=== PATIENT | female | born 1955 | race Caucasian/White ===

== ENCOUNTER 2020-07-01 09:08 | Observation (INO) ==
[2020-07-01] MEDS ORDERED: DilTIAZem 50 MG/50 ML IV.SOLN IVC SCH (09:30)
[2020-07-01 09:36] LABS: Basophils # 0.1 K/mcL (0.0-0.2); Basophils % 0.8 %; Eosinophils % 9.4 %; Hematocrit 44.1 % (35.3-44.9); Hemoglobin 13.9 g/dL (11.5-15.4); Immature Granulocytes % 0.6 % (0-4); Lymphocytes # 1.8 K/mcL (0.6-4.6); Lymphocytes % 17.2 %; Mean Corpuscular HGB Conc 31.5 g/dL (31.6-35.5); Mean Corpuscular Hemoglobin 27.5 pg (28.0-33.3); Mean Corpuscular Volume 87.3 fL (83.0-100.0); Mean Platelet Volume 9.6 fL (9.4-12.4); Monocytes # 1.1 K/mcL (0.0-1.3); Monocytes % 10.1 %; Neutrophils # 6.5 K/mcL (1.6-8.9); Platelet Count 264 K/mcL (140-400); Red Blood Count 5.05 M/mcL (3.82-4.97); Segmented Neutrophils % 61.9 %; White Blood Count 10.5 K/mcL (4.3-11.1)
[2020-07-01 10:02] LABS: BUN/Creatinine Ratio 29 (6-26); Blood Urea Nitrogen 20 mg/dL (8-23); Carbon Dioxide 25 mEq/L (23-29); Chloride 100 mEq/L (98-107); Glucose 199 mg/dL (70-105); Magnesium 1.6 mg/dL (1.6-2.6); Osmolality,Calculated 290 (280-300); Potassium 3.7 mEq/L (3.5-5.1); Sodium 136 mEq/L (136-145); Troponin I < 0.03 ng/mL (< 0.04); eGFR For African Americans > 60 (> 60); eGFR For Non-African Americans > 60 (> 60)
[2020-07-01 10:11] LABS: Thyroid Stimulating Hormone 6.578 mcIU/mL (0.340-5.600)
[2020-07-01] MEDS ORDERED: Acetaminophen 325 MG TABLET PO PRN (10:25)
[2020-07-01] MEDS ORDERED: Ondansetron 4 MG/2 ML VIAL IVP PRN (10:25)
[2020-07-01] MEDS ORDERED: Perflutren Lipid Microsphere 1.3 ML in 0.9 % Sodium Chloride 8.7 ML IVP PRN (10:34)
[2020-07-01] MEDS: Aspirin 81 MG TAB.CHEW PO SCH (11:44)
[2020-07-01] MEDS: *HR* Enoxaparin 100 MG/ML SYRINGE SQ SCH ×2 (11:44→19:54)
[2020-07-01] MEDS: Metoprolol 100 MG TABLET PO SCH ×2 (11:44→12:05)
[2020-07-01 12:26] LABS: Estimated Average Glucose 174 mg/dl
[2020-07-01] MEDS ORDERED: amLODIPine 5 MG TABLET PO SCH (18:00)
[2020-07-02 01:28] LABS: Hematocrit 39.3 % (35.3-44.9); Mean Corpuscular Hemoglobin 27.3 pg (28.0-33.3); Mean Corpuscular Volume 87.9 fL (83.0-100.0); Mean Platelet Volume 9.7 fL (9.4-12.4); Platelet Count 209 K/mcL (140-400); Red Blood Count 4.47 M/mcL (3.82-4.97); Red Cell Distribution Width 14.2 % (11.5-14.5); White Blood Count 10.2 K/mcL (4.3-11.1)
[2020-07-02 01:46] LABS: Hemoglobin 12.2 g/dL (11.5-15.4)
[2020-07-02 01:49] LABS: BUN/Creatinine Ratio 33 (6-26); Blood Urea Nitrogen 23 mg/dL (8-23); Calcium 8.8 mg/dL (8.6-10.3); Carbon Dioxide 26 mEq/L (23-29); Chloride 101 mEq/L (98-107); Chol/HDL Ratio 3.1 (0-4.9); Cholesterol 116 mg/dL (< 200); Glucose 139 mg/dL (70-105); HDL Cholesterol 37 mg/dL (40-59); LDL Cholesterol,Calculated 56 mg/dL (< 100); Magnesium 1.6 mg/dL (1.6-2.6); Osmolality,Calculated 288 (280-300); Phosphorous 2.7 mg/dL (2.7-4.5); Potassium 4.2 mEq/L (3.5-5.1); Sodium 136 mEq/L (136-145); Triglycerides 115 mg/dL (< 150); Troponin I < 0.03 ng/mL (< 0.04); eGFR For African Americans > 60 (> 60); eGFR For Non-African Americans > 60 (> 60)
[2020-07-02] MEDS ORDERED: Regadenoson 0.4 MG/5 ML SYRINGE IVP ONE (06:24)
[2020-07-02] MEDS: Aspirin 81 MG TAB.CHEW PO SCH (08:50)
[2020-07-02] MEDS: *HR* Enoxaparin 100 MG/ML SYRINGE SQ SCH (08:50)
[2020-07-02] MEDS ORDERED: lisinopriL 10 MG TABLET PO SCH (10:15)
[2020-07-02] MEDS ORDERED: DilTIAZem CD (24hr) 120 MG CAP.ER.24H PO SCH (11:00)
[2020-07-02] MEDS ORDERED: DilTIAZem CD (24hr) 180 MG CAP.ER.24H PO SCH (11:30)
[2020-07-02 14:53] VITALS: BP 109/64
[2020-07-02] MEDS ORDERED: *HR* Rivaroxaban 10 MG TABLET PO SCH (17:00)
== END 2020-07-02 17:59 | disposition home or self-care (01) ==
LOC: EMEROOARM 09:08 → 2ANU 09:08 → SUATTDRO 10:31 → 2ANU 10:55
PROVIDERS: ADMIT Internal Medicine; ATTEND Internal Medicine

== ENCOUNTER 2021-01-04 16:49 | Observation (INO) ==
[2021-01-04] MEDS ORDERED: Aspirin 81 MG TAB.CHEW PO ONE (17:23)
[2021-01-04 18:26] LABS: Basophils # 0.1 K/mcL (0.0-0.2); Basophils % 0.6 %; Eosinophils # 0.9 K/mcL (0.0-0.6); Eosinophils % 9.3 %; Hematocrit 40.9 % (35.3-44.9); Hemoglobin 12.6 g/dL (11.5-15.4); Immature Granulocytes % 0.5 % (0-4); Lymphocytes # 1.5 K/mcL (0.6-4.6); Mean Corpuscular HGB Conc 30.8 g/dL (31.6-35.5); Mean Corpuscular Hemoglobin 27.6 pg (28.0-33.3); Mean Corpuscular Volume 89.7 fL (83.0-100.0); Mean Platelet Volume 9.7 fL (9.4-12.4); Monocytes # 1.1 K/mcL (0.0-1.3); Monocytes % 10.8 %; Neutrophils # 6.2 K/mcL (1.6-8.9); Platelet Count 221 K/mcL (140-400); Red Blood Count 4.56 M/mcL (3.82-4.97); Red Cell Distribution Width 15.2 % (11.5-14.5); Segmented Neutrophils % 63.8 %; White Blood Count 9.7 K/mcL (4.3-11.1)
[2021-01-04 18:41] LABS: BUN/Creatinine Ratio 21 (6-26); Blood Urea Nitrogen 15 mg/dL (8-23); Calcium 9.3 mg/dL (8.6-10.3); Carbon Dioxide 27 mEq/L (23-29); Chloride 104 mEq/L (98-107); Glucose 121 mg/dL (70-105); Osmolality,Calculated 288 (280-300); Potassium 4.3 mEq/L (3.5-5.1); Sodium 138 mEq/L (136-145); eGFR For African Americans > 60 (> 60); eGFR For Non-African Americans > 60 (> 60)
[2021-01-04 18:42] LABS: Troponin I < 0.03 ng/mL (< 0.04)
[2021-01-04 18:47] LABS: Bilirubin,Urine Negative (Negative); Blood,Urine Negative (Negative); Clarity,Urine Clear (Clear); Color,Urine Light-Yellow (Yellow); Glucose,Urine (UA) Normal (Normal); Ketones,Urine Negative (Negative); Leukocyte Esterase,Urine Small (Negative); Mucus,Urine Few per lpf (None-Few); Nitrite,Urine Negative (Negative); Protein,Urine Trace mg/dL (Neg-Trace); RBC,Urine 0-3 per hpf (0-3); Squamous Epithelial Cell,Urine Few per hpf (None-Few); Urobilinogen,Urine Normal (Normal); WBC,Urine 0-3 per hpf (0-3)
[2021-01-04] MEDS ORDERED: Nitroglycerin 0.4 MG TAB.SUBL SL ONE (21:04)
[2021-01-04] MEDS ORDERED: Nitroglycerin 1 INCH/GM PACKET TP ONE (21:34)
[2021-01-04] MEDS ORDERED: Acetaminophen 325 MG TABLET PO PRN (23:00)
[2021-01-04] MEDS ORDERED: Naloxone 0.4 MG/ML INJ IVP PRN (23:00)
[2021-01-04] MEDS ORDERED: Melatonin 3 MG TABLET PO PRN (23:00)
[2021-01-04] MEDS ORDERED: Ondansetron 4 MG/2 ML VIAL IVP PRN (23:00)
[2021-01-05] MEDS ORDERED: Morphine Sulfate 2 MG/ML SYRINGE IVP PRN (03:20)
[2021-01-05] MEDS ORDERED: *HR* Rivaroxaban 10 MG TABLET PO SCH (04:00)
[2021-01-05 06:26] LABS: Basophils # 0.1 K/mcL (0.0-0.2); Basophils % 0.5 %; Eosinophils # 0.8 K/mcL (0.0-0.6); Eosinophils % 8.5 %; Hematocrit 38.4 % (35.3-44.9); Immature Granulocytes % 0.3 % (0-4); Lymphocytes # 1.7 K/mcL (0.6-4.6); Lymphocytes % 18.1 %; Mean Corpuscular HGB Conc 31.3 g/dL (31.6-35.5); Mean Corpuscular Hemoglobin 26.9 pg (28.0-33.3); Mean Corpuscular Volume 86.1 fL (83.0-100.0); Mean Platelet Volume 9.5 fL (9.4-12.4); Monocytes % 10.5 %; Neutrophils # 5.9 K/mcL (1.6-8.9); Platelet Count 236 K/mcL (140-400); Red Blood Count 4.46 M/mcL (3.82-4.97); Red Cell Distribution Width 15.3 % (11.5-14.5); Segmented Neutrophils % 62.1 %; White Blood Count 9.5 K/mcL (4.3-11.1)
[2021-01-05 06:48] LABS: Alanine Aminotransferase 18 Units/L (7-52); Albumin 3.6 g/dL (3.5-5.7); Albumin/Globulin Ratio 1.2 (1.1-2.2); Alkaline Phosphatase 91 Units/L (34-104); Aspartate Amino Transferase 16 Units/L (13-39); BUN/Creatinine Ratio 23 (6-26); Bilirubin,Total 0.5 mg/dL (0.3-1.0); Blood Urea Nitrogen 17 mg/dL (8-23); Calcium 8.9 mg/dL (8.6-10.3); Carbon Dioxide 27 mEq/L (23-29); Chloride 106 mEq/L (98-107); Globulin 3.1 g/dL (2.4-3.5); Glucose 148 mg/dL (70-105); Magnesium 1.9 mg/dL (1.6-2.6); Osmolality,Calculated 294 (280-300); Potassium 3.9 mEq/L (3.5-5.1); Sodium 140 mEq/L (136-145); Total Protein 6.7 g/dL (6.4-8.9); eGFR For African Americans > 60 (> 60); eGFR For Non-African Americans > 60 (> 60)
[2021-01-05] MEDS ORDERED: lisinopriL 20 MG TABLET PO SCH (09:00)
[2021-01-05] MEDS ORDERED: DilTIAZem CD (24hr) 180 MG CAP.ER.24H PO SCH (09:00)
[2021-01-05] MEDS ORDERED: Aspirin 81 MG TAB.CHEW PO SCH (09:00)
[2021-01-05] MEDS ORDERED: Ketorolac 15 MG/ML VIAL IVP ONE (09:48)
[2021-01-05 11:18] VITALS: BP 142/68
== END 2021-01-05 13:04 | disposition home or self-care (01) ==
LOC: 3BNU 16:49 → EMEROOARM 16:49 → SUATTDRO 21:19 → 3BNU 22:54
PROVIDERS: ADMIT Family Medicine; ATTEND Internal Medicine